=== PATIENT | male | born 1955 | race Caucasian/White ===

== ENCOUNTER → 2017-07-29 | Outpatient (CLI) | payer OTHER ==
[~2017-07-29] MED LIST: AMBIEN5 MG PO; ASPIRIN81 M2 PO; ATORVASTATIN CA20 MG PO; Aspirin E.C. PO; CLINDAMYCIN HC150 MG PO; EXFORGE PO; FISH OIL 1,0001 EAC7 PO; FLONASE ALLERG9.9 ML BOTH NARES; Flonase BOTH NARES; Lipitor PO; QVAR 40 MCG IN7.3 GM IH; VALSARTAN-HCTZ1 EAC1 PO; VITAMIN D2000 UNI1 PO; WELCHOL625 MG PO; ZEBETA10 MG PO; ZITHROMAX250 MG PO; ZOLPIDEM TARTRA10 MG PO; Ziac 5/6.25 PO
== END | disposition home or self-care (01) ==
LOC: CDC 09:15
DX: Z01.810 Encounter for preprocedural cardiovascular examination (principal); G56.01 Carpal tunnel syndrome, right upper limb; M25.531 Pain in right wrist; R00.1 Bradycardia, unspecified; I45.4 Nonspecific intraventricular block; R94.31 Abnormal electrocardiogram [ECG] [EKG]
CPT/HCPCS: 93000